=== PATIENT | female | born 1985 | race African-American/Black ===

== ENCOUNTER 2017-01-07 10:42 | Observation (INO) | payer MEDICAID ==
[~2017-01-07 10:42] MED LIST: METH250T21 PO; PREN-96 PO
== END 2017-01-07 12:55 | disposition home or self-care (01) | DRG 566 ==
LOC: LDRP 10:42
PROVIDERS: ADMIT Specialist; ATTEND Specialist
DX: O24.419 Gestational diabetes mellitus in pregnancy, unspecified control (principal); O36.8130 Decreased fetal movements, third trimester, not applicable or unspecified; Z3A.31 31 weeks gestation of pregnancy
CPT/HCPCS: 59025; 76818; 81002; 82962; G0378

== ENCOUNTER 2021-12-21 09:54 | Inpatient (IN) | payer MEDICAID ==
[~2021-12-21] VITALS: Ht 170.2 cm; Wt 136.4 kg
[2021-12-21] MEDS ORDERED: cloNIDine HCL 0.1 MG TAB PO ONE (10:15)
[2021-12-21] MEDS ORDERED: ONDANSETRON ODT 4 MG TAB PO ONE (11:00)
[2021-12-21 11:02] LABS: Basophils # (auto) 0.1 10 ^3/uL (0-0.2); Basophils % (auto) 0.6 % (0.0-2.0); Eosinophils # (auto) 0.1 10 ^3/uL (0-0.8); Eosinophils % (auto) 0.8 % (0.0-7.0); Hematocrit 45.2 % (36.0-46.0); Hemoglobin 14.6 g/dL (12.2-16.2); Lymphocytes # (auto) 1.8 10 ^3/uL (0.4-5.4); Lymphocytes % (auto) 20.2 % (10.0-50.0); Mean Corpuscular Hemoglobin 27.3 pg (28.0-32.0); Mean Corpuscular Hgb Conc. 32.4 g/dL (32.0-36.0); Mean Corpuscular Volume 84.3 fL (80.0-100.0); Monocytes # (auto) 0.5 10 ^3/uL (0-1.3); Monocytes % (auto) 5.9 % (0.0-12.0); Neutrophils # (auto) 6.3 10 ^3/uL (1.6-8.6); Neutrophils % (auto) 72.5 % (37.0-80.0); Nucleated Red Blood Cells % 0.1 %; Red Blood Cells 5.36 10^6/uL (4.0-5.20); Red Cell Distribution Width 14.2 % (11.8-14.3); White Blood Cell 8.8 10^3/uL (4.4-10.8)
[2021-12-21 11:10] LABS: Albumin 3.8 g/dL (3.4-5.0); Calcium 9.1 mg/dL (8.5-10.1); Potassium 3.7 mmol/L (3.5-5.1)
[2021-12-21 11:13] LABS: BUN/Creatinine Ratio 8.3; Bilirubin, Total 0.7 mg/dL (0.2-1.0); Total Protein 8.5 g/dL (6.4-8.2)
[2021-12-21] MEDS ORDERED: LABETALOL HCL 5 MG/ML 4ML SYRINGE IV ONE (14:30)
[2021-12-21] MEDS ORDERED: LABE100T4 PO (16:37)
[2021-12-21] MEDS ORDERED: LISI-716 PO (16:37)
[2021-12-21] MEDS ORDERED: cefTRIAXone SOD 1,000 MG VL IM ONE (16:45)
[2021-12-21] MEDS ORDERED: amLODIPine BESYLATE 5 MG TAB PO ONE (17:15)
[2021-12-22] MEDS ORDERED: DOCUSATE SOD 100 MG CAP PO PRN (00:45)
[2021-12-22] MEDS ORDERED: MORPHINE SULFATE INJ 2 MG/ml SYRG IV PRN (00:45)
[2021-12-22] MEDS ORDERED: SODIUM CHLORIDE 0.9% 1,000 ML IV SCH (00:45)
[2021-12-22] MEDS ORDERED: DEXTROSE (50%) 50ML SYRG IV PRN (00:45)
[2021-12-22] MEDS ORDERED: ONDANSETRON HCL 4 MG/2 ML VIAL IV PRN (00:45)
[2021-12-22] MEDS ORDERED: NITROGLYCERIN 0.4 MG SL TAB SL PRN (00:45)
[2021-12-22] MEDS ORDERED: hydrALAZINE HCL 20 MG/ML VL IV PRN (00:45)
[2021-12-22] MEDS ORDERED: ACETAMINOPHEN 325 MG TAB PO PRN (00:45)
[2021-12-22] MEDS: HYDROcodone-ACET 5/325MG TAB PO PRN (03:19)
[2021-12-22 05:18] LABS: Basophils # (auto) 0.1 10 ^3/uL (0-0.2); Basophils % (auto) 0.6 % (0.0-2.0); Eosinophils # (auto) 0 10 ^3/uL (0-0.8); Hematocrit 44.4 % (36.0-46.0); Hemoglobin 14.9 g/dL (12.2-16.2); Lymphocytes # (auto) 1.3 10 ^3/uL (0.4-5.4); Lymphocytes % (auto) 8.9 % (10.0-50.0); Mean Corpuscular Hemoglobin 27.6 pg (28.0-32.0); Mean Corpuscular Hgb Conc. 33.7 g/dL (32.0-36.0); Mean Corpuscular Volume 81.9 fL (80.0-100.0); Monocytes # (auto) 0.8 10 ^3/uL (0-1.3); Monocytes % (auto) 5.2 % (0.0-12.0); Neutrophils # (auto) 12.5 10 ^3/uL (1.6-8.6); Neutrophils % (auto) 85.3 % (37.0-80.0); Red Blood Cells 5.41 10^6/uL (4.0-5.20); Red Cell Distribution Width 14.2 % (11.8-14.3); White Blood Cell 14.7 10^3/uL (4.4-10.8)
[2021-12-22 05:32] LABS: Albumin 3.8 g/dL (3.4-5.0); Calcium 9.3 mg/dL (8.5-10.1); Potassium 3.9 mmol/L (3.5-5.1)
[2021-12-22 05:38] LABS: BUN/Creatinine Ratio 19.6; Bilirubin, Total 0.6 mg/dL (0.2-1.0)
[2021-12-22] MEDS: ACCU-CHEK COMFORT CURVE STRIP VI SCH ×4 (07:00→22:33)
[2021-12-22] MEDS: InsuLIN REG 1unit/0.01ml Soln (100units/ml) SC SCH ×3 (07:48→17:57)
[2021-12-22] MEDS: ENOXAPARIN SOD 40 MG/0.4 ML SYRINGE SC SCH (08:56)
[2021-12-22] MEDS: amLODIPine BESYLATE 5 MG TAB PO SCH (08:56)
[2021-12-22] MEDS ORDERED: METOPROLOL TARTRATE 50 MG TAB PO SCH (10:00)
[2021-12-22] MEDS ORDERED: cloNIDine HCL 0.1 MG TAB PO PRN (11:45)
[2021-12-22] MEDS ORDERED: TRIAMTERENE/HCTZ 37.5/25 MG CAP/TAB PO ONE (11:45)
[2021-12-22] MEDS: cefTRIAXone 1GM/50ML D5W 50 ML IV SCH (13:28)
[2021-12-22 17:14] VITALS: BP 123/68
[2021-12-22 22:00] VITALS: BP 125/75
[2021-12-22] MEDS ORDERED: InsuLIN REG 1unit/0.01ml Soln (100units/ml) SC SCH (22:00)
[2021-12-22] MEDS: LABETALOL HCL 200 MG TAB PO SCH (22:34)
[2021-12-23 05:00] VITALS: BP 120/65
[2021-12-23] MEDS: ACCU-CHEK COMFORT CURVE STRIP VI SCH ×2 (05:21→12:13)
[2021-12-23] MEDS: InsuLIN REG 1unit/0.01ml Soln (100units/ml) SC SCH ×2 (06:07→12:15)
[2021-12-23 06:31] LABS: Basophils # (auto) 0.1 10 ^3/uL (0-0.2); Basophils % (auto) 0.9 % (0.0-2.0); Eosinophils # (auto) 0.1 10 ^3/uL (0-0.8); Eosinophils % (auto) 0.7 % (0.0-7.0); Hematocrit 41.6 % (36.0-46.0); Hemoglobin 13.5 g/dL (12.2-16.2); Lymphocytes # (auto) 2.4 10 ^3/uL (0.4-5.4); Lymphocytes % (auto) 24.5 % (10.0-50.0); Mean Corpuscular Hgb Conc. 32.5 g/dL (32.0-36.0); Mean Corpuscular Volume 83.1 fL (80.0-100.0); Neutrophils # (auto) 6.3 10 ^3/uL (1.6-8.6); Neutrophils % (auto) 63.9 % (37.0-80.0); Nucleated Red Blood Cells % 0.1 %; Red Blood Cells 5.01 10^6/uL (4.0-5.20); Red Cell Distribution Width 14.5 % (11.8-14.3); White Blood Cell 9.8 10^3/uL (4.4-10.8)
[2021-12-23 06:46] LABS: Albumin 3.4 g/dL (3.4-5.0); Calcium 9.3 mg/dL (8.5-10.1); Potassium 3.8 mmol/L (3.5-5.1)
[2021-12-23 06:50] LABS: BUN/Creatinine Ratio 20.3; Bilirubin, Total 0.6 mg/dL (0.2-1.0); Total Protein 7.2 g/dL (6.4-8.2)
[2021-12-23] MEDS: cefTRIAXone 1GM/50ML D5W 50 ML IV SCH (08:33)
[2021-12-23] MEDS: HYDROcodone-ACET 5/325MG TAB PO PRN (08:49)
[2021-12-23 09:00] VITALS: BP 131/80
[2021-12-23] MEDS: ENOXAPARIN SOD 40 MG/0.4 ML SYRINGE SC SCH (09:26)
[2021-12-23] MEDS: amLODIPine BESYLATE 5 MG TAB PO SCH (09:26)
[2021-12-23] MEDS: LABETALOL HCL 200 MG TAB PO SCH (09:32)
[2021-12-23] MEDS ORDERED: TRIAMTERENE/HCTZ 37.5/25 MG CAP/TAB PO SCH (10:00)
[2021-12-23 12:35] VITALS: BP 133/82
[2021-12-23 13:00] VITALS: BP 126/71
[2021-12-23] MEDS ORDERED: BLOO1KIT60 XX (14:57)
[2021-12-23] MEDS ORDERED: LISI-716 PO (14:57)
[2021-12-23] MEDS ORDERED: AMLO-496 PO (14:57)
[2021-12-23] MEDS ORDERED: LABE200T7 PO (14:57)
[2021-12-23] MEDS ORDERED: LANC-347 XX (14:57)
[2021-12-23] MEDS ORDERED: METF-371 PO (14:57)
[2021-12-23 15:46] VITALS: BP 126/71
== END 2021-12-23 16:36 | disposition home or self-care (01) | DRG 199 ==
LOC: ER 09:54 → EDBD 09:54 → TELE 12-22 00:48 → TELE-EAST 12-22 17:00
PROVIDERS: ADMIT Nurse Practitioner Family; ATTEND Nurse Practitioner Family
DX: I16.0 Hypertensive urgency (principal); E11.65 Type 2 diabetes mellitus with hyperglycemia; E66.01 Morbid (severe) obesity due to excess calories; I10 Essential (primary) hypertension; J45.909 Unspecified asthma, uncomplicated; Z20.822 Contact with and (suspected) exposure to COVID-19; Z91.14 Patient's other noncompliance with medication regimen; Z68.42 Body mass index [BMI] 45.0-49.9, adult
CPT/HCPCS: 36415; 71045; 80053; 80061; 81025; 82962; 83036; 84484; 85025; 87070; 87426; 87804; 87880; 93005; 96361; 96372; 96374; G0378; J0696; J1815; J2405; J3490; Q0162

== ENCOUNTER 2024-12-21 13:05 | Inpatient (IN) | payer MEDICAID ==
[~2024-12-21] VITALS: Ht 172.7 cm; Wt 339.0 kg
[~2024-12-21 13:05] MED LIST changes: +AMLO1TAB23 PO; +BLOO1KIT60 XX; +LABE200T33 PO; +LANC-347 XX; +LISI10TA34 PO; +METF-371 PO; -METH250T21 PO; -PREN-96 PO
--- NOTE | 2024-12-21 14:27 | ED.PDOC ---
History of Present Illness HPI Comments This is a 39-year-old female who comes in with chief complaint of status post fall on Friday at approximately 3:00 a.m. in the morning. The patient states that she was leaning over a bathtub and fell into the bathtub. There was no loss of consciousness but now she is complaining of some head pain. The patient has stood up and then she states that she may have passed out because her family states that she that is somewhat altered. She does not remember the event completely. Upon arrival, the patient is complaining of some nausea. On arrival, the patient's blood pressure was 191/84 with an Accu-Chek of 118. Chief Complaint: Fall Injury Time Seen by MD: 13:29 Primary Care Provider: MERRY Reviewed Notes: Nurses Notes, Medications, Allergies (No allergies to medications) Allergies: Coded Allergies: No Known Drug Allergy (Verified Allergy, Unknown, 11/18/14) Home Meds Active Scripts Ondansetron Odt 4MG Tab (ZOFRAN PO) 4 Mg Tb, 4 MG PO Q8HP PRN for 5 Days, #15 TAB ODT TAB-DISSOLVE IN MOUTH, THEN SWALLOW Prov:SHIRIN CARTER MD 12/21/24 Lancets (Freestyle Lancets) Lancets Mis, BOT XX TIDWM, #120 Prov:TYRON PORTER MD 12/23/21 Blood Glucose Monitoring Suppl (D-Care Glucometer Kit/Glu W/Device) 1 Kit Kit, KIT XX TIDWM, #1 Prov:TYRON PORTER MD 12/23/21 Metformin Hydrochloride (Metformin Hcl) 850 Mg Tab, 1 TAB PO BID, #90 TAB 1 Refill Prov:TYRON PORTER MD 12/23/21 Amlodipine Besylate (Amlodipine Besylate) 10 Mg Tab, 1 TAB PO DAILY, #90 TAB 1 Refill Prov:TYRON PORTER MD 12/23/21 Labetalol Hcl (Labetalol Hcl) 200 Mg Tab, 1 TAB PO BID, #90 TAB 1 Refill Prov:TYRON PORTER MD 12/23/21 Lisinopril (Lisinopril) 10 Mg Tab, 10 MG PO BID for 10 Days, #90 MG Prov:TYRON PORTER MD 12/23/21 Information Source: Patient Mode of Arrival: Ambulatory Severity: Moderate Timing: Hours (Symptoms started at 3:00 a.m. in the morning on Friday) Duration: Since onset Prehospital treatment: None Location: Headaches with some nausea and vomiting Past Medical History PAST MEDICAL HISTORY: Asthma, DM, HTN Surgical History: Surgical History (Other): Right wrist surgery GOVERNMENT PROGRAM MANAGER History: No Pertinent GOVERNMENT PROGRAM MANAGER History Family History Family History: Family hx of DM, Family hx of Cancer Social History Smoker: Non-Smoker Alcohol: Occasionally Drugs: Marijuana Lives In: Home Constitutional: denies: chills, diaphoresis, fatigue, fever, malaise, sweats, weakness, others EENTM: denies: blurred vision, double vision, ear bleeding, ear discharge, ear drainage, ear pain, ear ringing, eye pain, eye redness, hearing loss, mouth pain, mouth swelling, nasal discharge, nose bleeding, nose congestion, nose p ain, photophobia, tearing, throat pain, throat swelling, voice changes, others Respiratory: denies: cough, hemoptysis, orthopnea, SOB at rest, shortness of breath, SOB with excertion, stridor, wheezing, others Cardiovascular: denies: chest pain, dizzy spells, diaphoresis, Dyspnea on exertion, edema, irregular heart beat, left arm pain, lightheadedness, palpitations, PND, syncope, others Gastrointestinal: reports: nausea, vomiting; denies: abdomen distended, abdominal pain, blood streaked bowels, constipated, diarrhea, dysphagia, difficulty swallowing, hematemesis, melena, poor appetite, poor fluid intake, rectal bleeding, rectal pain, others Genitourinary: denies: abnormal vagina bleeding, burning, dyspareunia, dysuria, flank pain, frequency, hematuria, incontinence, pain, , vagina discharge, urgency, others Neurological: reports: headache; denies: dizziness, fainting, left sided numbness, left sided weakness, numbness, paresthesia, pre-existing deficit, ri ght sided numbness, right sided weakness, seizure, speech problems, tingling, tremors, weakness, others Musculoskeletal: denies: back pain, gout, joint pain, joint swelling, muscle pain, muscle stiffness, neck pain, others Integumetry: denies: bruises, change in color, change in hair/nails, dryness, laceration, lesions, lumps, rash, wounds, others Allergic/Immunocompromised: denies: Difficulty Healing, Frequent Infections, Hives, Itching, others Hematologic/Lymphatic: denies: anemia, blood clots, easy bleeding, easy bruising, swollen glands, others Endocrine: denies: excessive hunger, excessive sweating, excessive thirst, excessive urination, flushing, intolerance to cold, intolerance to heat, unexplained weight gain, unexplained weight loss, others Psychiatric: denies: anxiety, bipolar disorder, depression, hopeless, panic disorder, schizophrenia, sleepless, suicidal, others Physical Exam General Appearance: Mild Distress, Obese HEENT: Normal ENT Inspection, Pharynx Normal, TMs Normal Neck: Full Range of Motion, Non-Tender, Normal, Normal Inspection Respiratory: Chest Non-Tender, Lungs Clear, No Accessory Muscle Use, No Respiratory Distress, Normal Breath Sounds Cardiovascular: No Edema, No JVD, No Murmur, No Gallop, Normal Peripheral Pulses, Regular Rate/Rhythm Breast Exam: Deferred Gastrointestinal: No Organomegaly, Non Tender, No Pulsatile Mass, Normal Bowel Sounds, Soft Genitalia: Deferred Pelvic: Deferred Rectal: Deferred Extremities: No calf tenderness, Normal capillary refill, Normal inspection, Normal range of motion, Non-tender, No pedal edema Musculoskeletal : Apperance: Normal Neurologic: Alert, informatica II-XII nml as Tested, No Motor Deficits, Normal Affect, Normal Mood, No Sensory Deficits Cerebellar Function: Normal Reflexes: Normal Skin: Dry, Normal Color, Warm Lymphatic: No Adenopathy Was a procedure done? Was a procedure done?: No EKG EKG : Pulse Rate (adult): 88 Holden: Normal Cardiac Rhythm: NSR Block: None ST: Nonsp Differential Dx Considerations may include: Generalized weakness, electrolyte imbalance, dehydration, blunt head trauma X-Ray, Labs, Meds, VS Vital Signs Date Time Temp Pulse Resp B/P (MAP) Pulse Ox O2 Delivery O2 Flow Rate FiO2 12/21/24 14:42 219/120 12/21/24 14:27 88 12/21/24 13:47 86 16 191/84 (119) 99 12/21/24 13:08 99.2 92 18 168/102 99 99.2 Lab Test 12/21/24 14:17 12/21/24 13:45 Range/Units White Blood Count 9.6 4.4-10.8 10^3/uL Red Blood Count 5.26 H 4.0-5.20 10^6/uL Hemoglobin 14.9 12.2-16.2 g/dL Hematocrit 44.9 36.0-46.0 % Mean Corpuscular Volume 85.4 80.0-100.0 fL Mean Corpuscular Hemoglobin 28.3 28.0-32.0 pg Mean Corpuscular Hemoglobin Concent 33.2 32.0-36.0 g/dL Red Cell Distribution Width 14.6 H 11.8-14.3 % Platelet Count 254 140-450 10^3/uL Mean Platelet Volume 9.9 6.9-10.8 fL Neutrophils (%) (Auto) 84.8 H 37.0-80.0 % Lymphocytes (%) (Auto) 7.0 L 10.0-50.0 % Monocytes (%) (Auto) 6.7 0.0-12.0 % Eosinophils (%) (Auto) 1.1 0.0-7.0 % Basophils (%) (Auto) 0.4 0.0-2.0 % Neutrophils # (Auto) 8.2 1.6-8.6 10 ^3/uL Lymphocytes # (Auto) 0.7 0.4-5.4 10 ^3/uL Monocytes # (Auto) 0.6 0-1.3 10 ^3/uL Eosinophils # (Auto) 0.1 0-0.8 10 ^3/uL Basophils # (Auto) 0 0-0.2 10 ^3/uL Nucleated Red Blood Cells 0.1 % Sodium Level 138 136-145 mmol/L Potassium Level 4.2 3.5-5.1 mmol/L Chloride Level 103 98-107 mmol/L Carbon Dioxide Level 27 20-31 mmol/L Anion Gap 8 5-15 Blood Urea Nitrogen 7 L 9-23 mg/dL Creatinine 0.57 0.550-1.02 mg/dL Glomerular Filtration Rate Calc 119 >90 mL/min BUN/Creatinine Ratio 12.3 10.0-20.0 Serum Glucose 122 H 74-106 mg/dL Calcium Level 9.7 8.7-10.4 mg/dL POC Glucose 118 H 70-106 mg/dl Current Medications Medications (Trade) Dose Ordered Sig/Mike Route Start Time Stop Time Status Last Admin Ondansetron HCl (Zofran Po) 4 mg ONCE ONCE PO 12/21/24 14:30 12/21/24 14:31 DC 12/21/24 14:43 Clonidine HCl (Catapres Tablet) 0.2 mg ONCE ONCE PO 12/21/24 14:30 12/21/24 14:31 DC 12/21/24 14:42 The patient was given Zofran 4 mg p.o. here in the emergency department's The patient is being given clonidine 0.2 mg by mouth for the elevated blood pressure The patient's CAT scan of the head is negative The patient's CBC and chemistry panel are within normal limits We feel that the patient can be safely discharged at this time The patient will return to the emergency department's the condition worsens. Images Reviewed?: Images reviewed and evaluated by me Time of 1ST Reevaluation: 14:27 Reevaluation 1ST: Unchanged Patient Education/Counseling: Diagnosis, Treatment, Prognosis, Need For Follow Up Family Education/Counseling: No Family Present SEPSIS Sepsis Screen Date sepsis recognized/suspect: Dec 21, 2024 Time Sepsis recognized/suspect: 1314 Recent Procedure: No On Antibiotic Therapy: No Respiratory Rate >20: No Heart Rate >90: Yes Temp<36 C (96.8 F) or >38.3 C: No SBP <90 or MAP <65 mmHG: No New Acute Mental Status Change: No Is the patient on CPAP, BIPAP,: No Physician Orders Urinalysis (12/21/24 14:04) Electrocardigram (12/21/24 14:04) Head Without Contrast (12/21/24 14:04) Vital Signs Date Time Temp Pulse Resp B/P (MAP) Pulse Ox O2 Delivery O2 Flow Rate FiO2 12/21/24 14:42 219/120 12/21/24 14:27 88 12/21/24 13:47 86 16 191/84 (119) 99 12/21/24 13:08 99.2 92 18 168/102 99 99.2 Laboratory Tests Test 12/21/24 14:17 White Blood Count 9.6 10^3/uL (4.4-10.8) Medications Medications Dose Ordered Sig/Mike Route Start Time Stop Time Status Last Admin Dose Admin Clonidine HCl 0.2 mg ONCE ONCE PO 12/21/24 14:30 12/21/24 14:31 DC 12/21/24 14:42 Ondansetron HCl 4 mg ONCE ONCE PO 12/21/24 14:30 12/21/24 14:31 DC 12/21/24 14:43 Departure 1 Departure Time of Disposition: 15:22 Impression: Primary Impression: Blunt head trauma Qualified Codes: S09.8XXA - Other specified injuries of head, initial encounter Additional Impression: History of fall Disposition: HOME / SELF CARE / HOMELESS Condition: Fair e-Prescriptions Ondansetron Odt 4MG Tab (ZOFRAN PO) 4 Mg Tb 4 MG PO Q8HP PRN for 5 Days, #15 TAB ODT TAB-DISSOLVE IN MOUTH, THEN SWALLOW Prov: SHIRIN CARTER MD 12/21/24 Discharged With: Self Critical Care Note Critical Care Time?: No Stability Stability form required: No Heart Score Heart Score: Heart Score Response (Comments) Value History N/A 0 EKG N/A 0 Age N/A 0 Risk Factors N/A 0 Troponin N/A 0 Total 0 SHIRIN CARTER MD Dec 21, 2024 14:27
[2024-12-21 14:28] LABS: Hematocrit 44.9 % (36.0-46.0); Hemoglobin 14.9 g/dL (12.2-16.2); Mean Corpuscular Hemoglobin 28.3 pg (28.0-32.0); Mean Corpuscular Volume 85.4 fL (80.0-100.0); Nucleated Red Blood Cells % 0.1 %
[2024-12-21] MEDS: ONDANSETRON ODT 4 MG TAB PO ONE (14:43)
[2024-12-21 14:46] LABS: Chloride 103 mmol/L (98-107); Potassium 4.2 mmol/L (3.5-5.1); Sodium 138 mmol/L (136-145)
[2024-12-21 14:47] LABS: Anion Gap 8 (5-15); Calcium 9.7 mg/dL (8.7-10.4); Carbon Dioxide 27 mmol/L (20-31)
[2024-12-21 14:52] LABS: BUN/Creatinine Ratio 12.3 (10.0-20.0); Blood Urea Nitrogen 7 mg/dL (9-23); Glucose 122 mg/dL (74-106)
--- NOTE | 2024-12-21 15:01 | DVH ---
CLINICAL HISTORY: pain TECHNIQUE: Helical scanning was performed of the head from the skull base to the vertex. Multiplanar reconstructions were performed. This exam was performed according to our departmental dose optimizat ion program. Up-to-date CT equipment and radiation dose reduction techniques are utilized as appropri ate. CTDI 67 DLP 1312 COMPARISON: CT BRAIN on DOS: 12/18/24 FINDINGS: There is no evidence for acute intracranial hemorrhage, acute ischemic changes, mass, mass effect, or extra-axial fluid collection. There is no hydrocephalus or midline shift. There is no effacement of the cerebral sulci and basal subarachnoid cisterns. The dodge-white matter differentiation is well lacey ntained. The imaged paranasal sinuses are clear. IMPRESSION: NO ACUTE INTRACRANIAL ABNORMALITY SEEN.
[2024-12-21] MEDS ORDERED: ZOFR4T PO (15:22)
[2024-12-21] MEDS: hydrALAZINE HCL 20 MG/ML VL IV ONE (18:06)
[2024-12-21 19:20] VITALS: PULSE 88
[2024-12-21] MEDS ORDERED: DEXTROSE (50%) 50ML SYRG IV PRN (19:30)
[2024-12-21] MEDS: hydrALAZINE HCL 20 MG/ML VL IV PRN (20:37)
[2024-12-21 21:19] LABS: Urine Protein, UAD Negative (Negative)
[2024-12-21] MEDS: dilTIAZem 25 MG/5 ML VIAL IV ONE (21:35)
[2024-12-21] MEDS: ACCU-CHEK COMFORT CURVE STRIP VI SCH (22:40)
[2024-12-21] MEDS: InsuLIN REG 1unit/0.01ml Soln (100units/ml) SC SCH (22:45)
[2024-12-21] MEDS: LABETALOL HCL 200 MG TAB PO SCH (22:46)
[2024-12-22] VITALS (40 sets, daily range): BP systolic 118–168; BP diastolic 58–85; PULSE 74–103; RESP 11–30; TEMP 98.8–99.4; O2SAT 88–97
--- NOTE | 2024-12-22 00:27 | DVHHP2 ---
History of Present Illness Reason for Visit: Headache History of Present Illness 39-year-old female presents for evaluation of the headache. Patient reports having a fall four days ago where she leaned forward over her bathtub and fell forward hitting her head. Today she presents with headache and some nausea. On arrival patient was noted to be hypertensive in the 200s. Denies blurred vision, chest pain or shortness for breath. Past Medical History Diabetes mellitus, hypertension and asthma Past Surgical History Family History Cancer and diabetes mellitus Smoke: No ALCOHOL: occassional Drugs: Marijuana Lives: with Family Review of Systems Review of Systems Review of systems are currently negative otherwise addressed in HPI. Allergies: Coded Allergies: No Known Drug Allergy (Verified Allergy, Unknown, 11/18/14) Medications Current Medications Medications Dose Ordered Sig/Mike Route Start Time Stop Time Status Last Admin Dose Admin Hydralazine HCl 10 mg Q6HP PRN IV 12/21/24 19:30 12/21/24 20:47 10 MG Labetalol HCl 200 mg Q12HR PO 12/21/24 22:00 12/21/24 22:46 200 MG Amlodipine Besylate 10 mg DAILY PO 12/22/24 10:00 Lisinopril 10 mg DAILY PO 12/22/24 10:00 Diagnostic Test (Pha) 1 strip ACHS 12/21/24 22:00 12/21/24 22:40 1 STRIP Insulin Human Regular ACHS SC 12/21/24 22:00 12/21/24 22:45 3 UNITS Dextrose 50 ml UD PRN IV 12/21/24 19:30 Ondansetron HCl 4 mg Q4HP PRN IV 12/21/24 19:30 Acetaminophen 650 mg Q6HP PRN PO 12/21/24 19:30 Exam Vital Signs Vital Signs Date Time Temp Pulse Resp B/P (MAP) Pulse Ox O2 Delivery O2 Flow Rate FiO2 12/22/24 00:00 87 20 193/93 (126) 94 12/21/24 20:00 98.7 98.7 12/21/24 19:20 Room Air* 0 21 Exam Gen: 39-year-old female in mild distress, morbidly obese Skin: Warm, dry, normal color and texture, no rash. HEENT: Normocephalic atraumatic, mucous membranes moist and pink. Neck: Cervical and supraclavicular nodes normal without enlargement, trachea is midline, thyroid gland is normal without masses. Pulmonary: Clear to auscultation and percussion bilaterally. Cardiac: Regular rate and rhythm. No murmur Abdomen: Soft, nontender, nondistended, bowel sounds present all 4 quadrants, no guarding, no rigidity, no organomegaly. Extremities: No cyanosis, clubbing, no edema Neuro: Cranial nerves II through XII grossly intact, normal affect and speech, no focal motor deficits. Labs/Xrays ORDERING PHYSICIAN: SHIRIN CARTER MD PROCEDURE(s): HWOCT - HEAD WITHOUT CONTRAST REASON: pain ORDER NUMBER(s): [id number], ACCESSION NUMBER(s): [id number] CLINICAL HISTORY: pain TECHNIQUE: Helical scanning was performed of the head from the skull base to the vertex. Multiplanar reconstructions were performed. This exam was performed according to our departmental dose optimization program. Up-to-date CT equipment and radiation dose reduction techniques are utilized as appropriate. CTDI 67 DLP 1312 COMPARISON: CT BRAIN on DOS: 12/18/24 FINDINGS: There is no evidence for acute intracranial hemorrhage, acute ischemic changes, mass, mass effect, or extra-axial fluid collection. There is no hydrocephalus or midline shift. There is no effacement of the cerebral sulci and basal subarachnoid cisterns. The dodge-white matter differentiation is well maintained. The imaged paranasal sinuses are clear. IMPRESSION: NO ACUTE INTRACRANIAL ABNORMALITY SEEN. Labs Test 12/21/24 20:43 12/21/24 14:17 12/21/24 13:45 Range/Units Urine Color Light-yellow Yellow Urine Clarity Turbid H Clear Urine pH 8.0 5.0-9.0 Urine Specific [place] 1.017 1.001-1.035 Urine Protein Negative Negative Urine Ketones Trace Negative Urine Blood Negative Negative /uL Urine Nitrite Negative Negative Urine Bilirubin Negative Negative Urine Urobilinogen Normal Negative mg/dL Urine Leukocyte Esterase 3+ Negative /uL Urine RBC 10 0 - 4 /hpf Urine Microscopic WBC 88 H 0-5 /HPF Urine Squamous Epithelial Cells Mod <5 /hpf Urine Bacteria Few H None Seen /hpf Urine Mucus Few None Seen Urine Glucose Normal Normal mg/dL White Blood Count 9.6 4.4-10.8 10^3/uL Red Blood Count 5.26 H 4.0-5.20 10^6/uL Hemoglobin 14.9 12.2-16.2 g/dL Hematocrit 44.9 36.0-46.0 % Mean Corpuscular Volume 85.4 80.0-100.0 fL Mean Corpuscular Hemoglobin 28.3 28.0-32.0 pg Mean Corpuscular Hemoglobin Concent 33.2 32.0-36.0 g/dL Red Cell Distribution Width 14.6 H 11.8-14.3 % Platelet Count 254 140-450 10^3/uL Mean Platelet Volume 9.9 6.9-10.8 fL Neutrophils (%) (Auto) 84.8 H 37.0-80.0 % Lymphocytes (%) (Auto) 7.0 L 10.0-50.0 % Monocytes (%) (Auto) 6.7 0.0-12.0 % Eosinophils (%) (Auto) 1.1 0.0-7.0 % Basophils (%) (Auto) 0.4 0.0-2.0 % Neutrophils # (Auto) 8.2 1.6-8.6 10 ^3/uL Lymphocytes # (Auto) 0.7 0.4-5.4 10 ^3/uL Monocytes # (Auto) 0.6 0-1.3 10 ^3/uL Eosinophils # (Auto) 0.1 0-0.8 10 ^3/uL Basophils # (Auto) 0 0-0.2 10 ^3/uL Nucleated Red Blood Cells 0.1 % Sodium Level 138 136-145 mmol/L Potassium Level 4.2 3.5-5.1 mmol/L Chloride Level 103 98-107 mmol/L Carbon Dioxide Level 27 20-31 mmol/L Anion Gap 8 5-15 Blood Urea Nitrogen 7 L 9-23 mg/dL Creatinine 0.57 0.550-1.02 mg/dL Glomerular Filtration Rate Calc 119 >90 mL/min BUN/Creatinine Ratio 12.3 10.0-20.0 Serum Glucose 122 H 74-106 mg/dL Calcium Level 9.7 8.7-10.4 mg/dL Thyroid Stimulating Hormone (TSH) 0.64 0.55-4.78 uIU/mL POC Glucose 118 H 70-106 mg/dl SEPSIS Sepsis Screen Date sepsis recognized/suspect: Dec 21, 2024 Time Sepsis recognized/suspect: 1919 Recent Procedure: No On Antibiotic Therapy: No Respiratory Rate >20: No Heart Rate >90: No Temp<36 C (96.8 F) or >38.3 C: No SBP <90 or MAP <65 mmHG: No New Acute Mental Status Change: No Is the patient on CPAP, BIPAP,: No Physician Orders Heplock Iv (12/21/24 ) Hydralazine Injection (Apresoline Inject (12/21/24 19:30) Consistent Carb(Ccho)Diabetes (12/22/24 Breakfast) Labetalol Hcl Tablet (Normodyne Tablet) (12/21/24 22:00) Amlodipine Tablet (Norvasc Tablet) (12/22/24 10:00) Lisinopril Tablet (Zestril Tablet) (12/22/24 10:00) Glucose Blood (Accu-Chek Comfort Curve T (12/21/24 22:00) Insulin R (Human) (Insulin R) (12/21/24 22:00) Dextrose 50% Syringe (12/21/24 19:30) Admit (12/21/24:25) Ondansetron Hcl (Zofran) (12/21/24 19:30) Echo 2d Mode Cardiac Dop (12/21/24:) Condition: Stable (12/21/24:25) Acetaminophen Tablet (Tylenol Tablet) (12/21/24 19:30) Bedrest With Bathroom Privileg (12/21/24:) Transfer Orders (12/22/24 00:21) Nicardipine 20mg/200ml (12/22/24 00:30) Vital Signs Date Time Temp Pulse Resp B/P (MAP) Pulse Ox O2 Delivery O2 Flow Rate FiO2 12/22/24 00:00 87 20 193/93 (126) 94 12/21/24 23:46 88 198/86 12/21/24 22:46 88 195/90 12/21/24 22:00 91 22 195/94 (127) 96 12/21/24 21:35 100 18 215/100 (138) 95 12/21/24 20:47 205/98 12/21/24 20:37 205/98 12/21/24 20:00 98.7 91 18 205/98 (133) 95 98.7 12/21/24 19:20 88 Room Air* 0 21 12/21/24 19:10 86 10 177/84 (115) 96 12/21/24 18:06 203/100 12/21/24 17:35 Room Air* 0 21 12/21/24 17:00 98.4 83 14 184/86 (118) 92 98.4 12/21/24 16:58 184/86 12/21/24 16:40 184/86 Laboratory Tests Test 12/21/24 14:17 White Blood Count 9.6 10^3/uL (4.4-10.8) Medications Medications Dose Ordered Sig/Mike Route Start Time Stop Time Status Last Admin Dose Admin Amlodipine Besylate 10 mg ONCE ONCE PO 12/21/24 16:45 12/21/24 16:46 DC 12/21/24 16:58 10 MG Clonidine HCl 0.2 mg ONCE ONCE PO 12/21/24 14:30 12/21/24 14:31 DC 12/21/24 14:42 0.2 MG Diagnostic Test (Pha) 1 strip ACHS 12/21/24 22:00 12/21/24 22:40 1 STRIP Diltiazem HCl 10 mg ONCE ONCE IV 12/21/24 21:30 12/21/24 21:31 DC 12/21/24 21:35 10 MG Hydralazine HCl 10 mg Q6HP PRN IV 12/21/24 19:30 12/21/24 20:47 10 MG Hydralazine HCl 15 mg ONCE ONCE IV 12/21/24 17:45 12/21/24 17:46 DC 12/21/24 18:06 15 MG Insulin Human Regular ACHS SC 12/21/24 22:00 12/21/24 22:45 3 UNITS Labetalol HCl 200 mg Q12HR PO 12/21/24 22:00 12/21/24 22:46 200 MG Ondansetron HCl 4 mg ONCE ONCE PO 12/21/24 14:30 12/21/24 14:31 DC 12/21/24 14:43 4 MG Assessment/Plan Assessment/Plan Assessment Hypertensive urgency Blunt head trauma Diabetes mellitus Morbid obesity Plan admit the patient to ICU to the hospitalist Nicardipine drip As needed antihypertensives to wean the drip Resume home medications Continue treatment per orders. Plan discussed with: Patient My Orders Orders - MISAEL AVERY Procedure Category Date Status Time Hydralazine Injection PHA 12/21/24 In Process (Apresoline Inject 19:30 Consistent DIET 12/22/24 Transmitted Carb(Ccho)Diabetes Breakfast Labetalol Hcl Tablet PHA 12/21/24 In Process (Normodyne Tablet) 22:00 Amlodipine Tablet PHA 12/22/24 In Process (Norvasc Tablet) 10:00 Lisinopril Tablet PHA 12/22/24 In Process (Zestril Tablet) 10:00 Glucose Blood PHA 12/21/24 In Process (Accu-Chek Comfort 22:00 Insulin R (Human) PHA 12/21/24 In Process (Insulin R) 22:00 Dextrose 50% Syringe PHA 12/21/24 In Process 19:30 Admit ADMIT 12/21/24 Transmitted 19:25 Ondansetron Hcl PHA 12/21/24 In Process (Zofran) 19:30 Echo 2d Mode Cardiac US 12/21/24 Logged DOP 19:25 Condition: Stable FRANCES 12/21/24 In Process 19:25 Acetaminophen Tablet PHA 12/21/24 In Process (Tylenol Tablet) 19:30 Bedrest With Bathroom FRANCES 12/21/24 In Process Privileg 19:25 Transfer Orders XFER 12/22/24 Transmitted 00:21 Nicardipine 20mg/200ml PHA 12/22/24 Transmitted 00:30 Date of Service: Dec 21, 2024 Billing Provider: MISAEL AVERY Common Visit Codes: [id number] CARE 30-74 MIN MISAEL AVERY Dec 22, 2024 00:27
[2024-12-22 01:40] LABS: Triglycerides 50 mg/dL (< 150)
[2024-12-22 01:42] LABS: HDL Cholesterol 44 mg/dL (40-59)
[2024-12-22 01:43] LABS: Cholesterol 143 mg/dL (< 200)
[2024-12-22] MEDS: ONDANSETRON HCL 4 MG/2 ML VIAL IV PRN (05:27)
[2024-12-22] MEDS: LISINOPRIL 5 MG TAB PO SCH (09:13)
[2024-12-22] MEDS: INSULIN LISPRO (HUMAN) 100 UNITS/ML ML SC SCH (12:33)
[2024-12-22] MEDS: hydroCHLOROthiazide 25 MG TAB PO ONE (12:47)
--- NOTE | 2024-12-22 14:45 | DVHPN2 ---
Assessment/Plan Assessment/Plan progress note 39 F with HTN, 2 c sections admitted for htn crisis. also s/p fall 2/2 dizziness. started on nicardipine. now off. seen today. asymptomatic, started oral bp meds. ok with elevated BP, she was 200s at home for weeks. physical exam aox4 morbidly obese clear breath sounds s1 s2 rrr abdomen obese le edema labs ekg imaging reviewed assessment and plan morbid obesity hypertensive crisis dizziness s/p mech fall resistant HTN BRAD? acute on chronic hypoxic RF start po bp meds add thiazide and labetalol and losartan transfer to telemetry on DC will need sleep study diet cardiac dvt ppx lovenox full code crit care time 35 minutes Plan discussed with: Patient My Orders Orders - ANAMARIA CAMILO MD Procedure Category Date Status Time Lisinopril Tablet PHA 12/23/24 In Process (Zestril Tablet) 10:00 Hydrochlorothiazide PHA 12/23/24 In Process Tablet (Hydrochlorot 10:00 Insulin Lispro PHA 12/22/24 In Process (Human) (Humalog) 11:30 Basic Metabolic Panel LAB 12/23/24 Verified 04:00 Complete Blood Count LAB 12/23/24 Verified 04:00 Transfer Orders XFER 12/22/24 Transmitted 11:28 Date of Service: Dec 22, 2024 Billing Provider: ANAMARIA CAMILO MD Common Visit Codes: [id number] CARE 30-74 MIN ANAMARIA CAMILO MD Dec 22, 2024 14:45
[2024-12-22] MEDS: ACETAMINOPHEN 325 MG TAB PO PRN (22:08)
[2024-12-23] VITALS (8 sets, daily range): BP systolic 110–163; BP diastolic 71–85; PULSE 61–78; RESP 18–21; TEMP 97.7–98.9; O2SAT 94–97
[2024-12-23 07:16] LABS: Hematocrit 40.5 % (36.0-46.0); Hemoglobin 13.9 g/dL (12.2-16.2); Mean Corpuscular Hemoglobin 29.0 pg (28.0-32.0); Mean Corpuscular Volume 84.5 fL (80.0-100.0); Nucleated Red Blood Cells % 0.0 %
[2024-12-23 07:23] LABS: Chloride 100 mmol/L (98-107); Potassium 3.7 mmol/L (3.5-5.1); Sodium 137 mmol/L (136-145)
[2024-12-23 07:24] LABS: Anion Gap 8 (5-15); Carbon Dioxide 29 mmol/L (20-31)
[2024-12-23 07:25] LABS: Calcium 9.5 mg/dL (8.7-10.4)
[2024-12-23 07:29] LABS: BUN/Creatinine Ratio 14.8 (10.0-20.0); Blood Urea Nitrogen 12 mg/dL (9-23)
[2024-12-23 07:39] LABS: Glucose 116 mg/dL (74-106)
[2024-12-23] MEDS: LISINOPRIL 5 MG TAB PO SCH (09:52)
[2024-12-23] MEDS: hydroCHLOROthiazide 25 MG TAB PO SCH (09:53)
--- NOTE | 2024-12-23 16:18 | DVHPN2 ---
Assessment/Plan Assessment/Plan progress note 39 F with HTN, 2 c sections admitted for htn crisis. also s/p fall 2/2 dizziness. started on nicardipine. now off. seen today. 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 uses canabis, no abd pain. physical exam aox4 morbidly obese clear breath sounds s1 s2 rrr abdomen obese le edema labs ekg imaging reviewed assessment and plan morbid obesity hypertensive crisis dizziness s/p mech fall resistant HTN BRAD? acute on chronic hypoxic RF canabis hyperemesis? start po bp meds add thiazide and labetalol and losartan transfer to telemetry on DC will need sleep study zofran prn diet cardiac dvt ppx lovenox full code Plan discussed with: Patient Date of Service: Dec 23, 2024 Billing Provider: ANAMARIA CAMILO MD Common Visit Codes: [id number] INP/OBS CARE(HIGH) ANAMARIA CAMILO MD Dec 23, 2024 16:18
[2024-12-24 05:00] VITALS: BP 154/84; PULSE 71; RESP 18; TEMP 98; O2SAT 93
[2024-12-24 08:04] VITALS: PULSE 62; RESP 17; O2SAT 99
[2024-12-24] MEDS ORDERED: LABE200T10 PO (08:27)
[2024-12-24] MEDS ORDERED: HYDR25TA5 PO (08:27)
[2024-12-24] MEDS ORDERED: LISI20TA56 PO (08:27)
[2024-12-24] MEDS ORDERED: CEPH250C PO (08:27)
[2024-12-24] MEDS ORDERED: ZOFR4T PO (08:29)
[2024-12-24] MEDS ORDERED: METF-490 PO (08:29)
--- NOTE | 2024-12-24 08:29 | DVHDS2 ---
Discharge Summary Date of Admission Dec 21, 2024 at 19:25 Date of Discharge: Dec 24, 2024 Labs/Diagnostic Data: Laboratory Results Test 12/24/24 06:06 12/23/24 06:27 12/22/24 00:41 12/21/24 20:43 POC Glucose 113 mg/dl (70-106) White Blood Count 8.9 10^3/uL (4.4-10.8) Red Blood Count 4.79 10^6/uL (4.0-5.20) Hemoglobin 13.9 g/dL (12.2-16.2) Hematocrit 40.5 % (36.0-46.0) Mean Corpuscular Volume 84.5 fL (80.0-100.0) Mean Corpuscular Hemoglobin 29.0 pg (28.0-32.0) Mean Corpuscular Hemoglobin Concent 34.3 g/dL (32.0-36.0) Red Cell Distribution Width 14.8 % (11.8-14.3) Platelet Count 273 10^3/uL (140-450) Mean Platelet Volume 9.9 fL (6.9-10.8) Neutrophils (%) (Auto) 74.3 % (37.0-80.0) Lymphocytes (%) (Auto) 15.4 % (10.0-50.0) Monocytes (%) (Auto) 9.4 % (0.0-12.0) Eosinophils (%) (Auto) 0.7 % (0.0-7.0) Basophils (%) (Auto) 0.2 % (0.0-2.0) Neutrophils # (Auto) 6.6 10 ^3/uL (1.6-8.6) Lymphocytes # (Auto) 1.4 10 ^3/uL (0.4-5.4) Monocytes # (Auto) 0.8 10 ^3/uL (0-1.3) Eosinophils # (Auto) 0.1 10 ^3/uL (0-0.8) Basophils # (Auto) 0 10 ^3/uL (0-0.2) Nucleated Red Blood Cells 0.0 % Sodium Level 137 mmol/L (136-145) Potassium Level 3.7 mmol/L (3.5-5.1) Chloride Level 100 mmol/L (98-107) Carbon Dioxide Level 29 mmol/L (20-31) Anion Gap 8 (5-15) Blood Urea Nitrogen 12 mg/dL (9-23) Creatinine 0.81 mg/dL (0.550-1.02) Glomerular Filtration Rate Calc 95 mL/min (>90) BUN/Creatinine Ratio 14.8 (10.0-20.0) Serum Glucose 116 mg/dL (74-106) Calcium Level 9.5 mg/dL (8.7-10.4) Troponin I High Sensitivity 4 ng/L (</=34) Triglycerides Level 50 mg/dL (< 150) Cholesterol Level 143 mg/dL (< 200) LDL Cholesterol 97 mg/dL (< 100) HDL Cholesterol 44 mg/dL (40-59) Urine Color Light-yellow (Yellow) Urine Clarity Turbid (Clear) Urine pH 8.0 (5.0-9.0) Urine Specific [place] 1.017 (1.001-1.035) Urine Protein Negative (Negative) Urine Ketones Trace (Negative) Urine Blood Negative /uL (Negative) Urine Nitrite Negative (Negative) Urine Bilirubin Negative (Negative) Urine Urobilinogen Normal mg/dL (Negative) Urine Leukocyte Esterase 3+ /uL (Negative) Urine RBC 10 /hpf (0 - 4) Urine Microscopic WBC 88 /HPF (0-5) Urine Squamous Epithelial Cells Mod /hpf (<5) Urine Bacteria Few /hpf (None Seen) Urine Mucus Few (None Seen) Urine Glucose Normal mg/dL (Normal) Test 12/21/24 14:17 Thyroid Stimulating Hormone (TSH) 0.64 uIU/mL (0.55-4.78) Other Laboratory Tests 12/23/24 06:27 Brief Hx & Hospital Course: 9 F with HTN, 2 c sections admitted for htn crisis. also s/p fall 2/2 dizziness. started on nicardipine. now off. restarted on po meds. still have ocasional nausea, reported starting 2 days [employer] w vomiting. uses canabis, no abd pain. improved with zofran and hot shower. 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 stable to co home. co clinic f/u Condition at Discharge: Good Final Diagnosis/Problems List morbid obesity hypertensive crisis dizziness s/p mech fall resistant HTN BRAD? acute on chronic hypoxic RF canabis hyperemesis? asymptomtic bacteriuria Discharge Disposition: Home Discharge Instruct/Medications Diet: Consistent carbohydrate, Cardiac 2g Na,low cholest Activity: No Restrictions, As Tolerated Follow Up/Referral: [facility] clinic 01/07 PCP referral for sleep study Medications: metformin labetalol hctz lisinopril keflex zofran Scheduled Cephalexin (Keflex Capsule), 1 CAP PO QID Glucose Blood (Glucose Meter Test Strips), 1 WINNIE AC Hctz (Hydrochlorothiazide), 12.5 MG PO DAILY Labetalol HCl (Labetalol HCl), 200 MG PO Q12HR Lisinopril (Lisinopril), 1 TAB PO DAILY Metformin Hydrochloride (Metformin Hcl Er), 1 TAB PO DAILY Scheduled PRN Ondansetron Odt 4MG Tab (Zofran Po), 4 MG PO Q8HP PRN Discontinued Medications Amlodipine Besylate (Amlodipine Besylate), 1 TAB PO DAILY Labetalol Hcl (Labetalol Hcl), 1 TAB PO BID Lisinopril (Lisinopril), 10 MG PO BID Metformin Hydrochloride (Metformin Hcl), 1 TAB PO BID Ondansetron Odt 4MG Tab (Zofran Po), 4 MG PO Q8HP PRN Durable Medical Equipment Blood Glucose Monitoring Suppl (D-Care Glucometer Kit/Glu W/Device), KIT XX TIDWM, (DME) Blood Glucose Monitoring Suppl (Blood Glucose Monitoring W/Device), KIT XX UD PRN, (DME) Isopropyl Alcohol (Alcohol Prep Pad), % XX AC, (DME) Lancets (Freestyle Lancets), BOT XX TIDWM, (DME) Lancets (Freestyle Lancets), UNIT XX AC, (DME) Discharge Statement: "Patient was advised to return to the ER or call 911 if any headaches, dizziness, shortness of breath, chest pain, abdominal pain, bleeding, fevers, or worsening of medical condition. Patient was counseled about treatment plan, medications, possible side effects, patientverbalized understanding. All questions were answered to the best of my ability. This discharge took greater then 30 minutes in planning, reviewing documentation, counseling the patient, and discussing with other team members." ASSESSMENT ASSESSMENT Assessment htn emergency BRAD asymptomatic bacteriuria NIDDM Date of Service: Dec 24, 2024 Billing Provider: ANAMARIA CAMILO MD Common Visit Codes: 24712-QGK/OBS DISCH DAY >30min ANAMARIA CAMILO MD Dec 24, 2024 08:29
[2024-12-24 09:59] VITALS: BP 133/72; PULSE 62; RESP 17; TEMP 98.3; O2SAT 99
[2024-12-24 10:14] VITALS: BP 133/72; PULSE 62; RESP 17; TEMP 98.3; O2SAT 99
[2024-12-24] MEDS ORDERED: BLOO-200 XX (11:22)
[2024-12-24] MEDS ORDERED: LANC-347 XX (11:22)
[2024-12-24] MEDS ORDERED: GLUC1TES63 VI (11:22)
[2024-12-24] MEDS ORDERED: ALCO70PA28 XX (11:22)
--- NOTE | 2024-12-24 12:16 | DVHSR ---
APPROVED REPORT EXAM: Two-dimensional and M-mode echocardiogram with Doppler and color Doppler. Blood Pressure: 132/67 mmHg INDICATION htn RISK FACTORS Obesity: Height: 5'8, Weight: 315 DIMENSIONS LVDd4.7 (3.8-5.7cm)LA (2D)4.4 (1.9-4.0cm)Aortic Root3.0 (2.0-3.7cm) LVDs3.4 (2.5-4.0cm)LA (MM) (1.9-4.0cm)Aortic Cusp Exc1.5 (1.5-2.0cm) EF (%) 60.0 (55-70%)Rt. Atrium4.3 (1.9-4.0cm)Asc. Aorta3.0 cm IVSd1.2 (0.7-1.1cm)RV (D)4.5 (1.8-2.4cm) PWd1.2 (0.7-1.1cm) Mitral Valve MitralMitral Stenosis E wave1.02m/sMV Mean GR.mmHg A wave1.11m/sMV Peak GR.91mmHg E/A ratio0.92D MVAcm2 DECEL [id number] 1/2 [place] Aortic Valve Aortic ValveAortic Stenosis V11.26m/Pardeep Mean GR.10mmHg V22.15m/Pardeep Peak GR.18mmHg LVOT Diameter2.1 (1.8-2.4cm)Doppler AVA2.03cm2 Pulmonic Valve V21.67m/s Tricuspid Valve TR Velocity2.16m/s [id number] Conclusion Technically good study. Sinus rhythm. Concentric LVH with biatrial enlargement. Mild aortic root enlargement. Valves are normal. EF of 60% with normal RV function. Dopplers unremarkable. No pericardial effusion masses or vegetations.
== END 2024-12-24 12:07 | disposition home or self-care (01) | DRG 199 ==
LOC: ER 13:09 → OVERFLOW 19:25 → ICU CENTRL 12-22 02:42 → TELE-CENTR 12-22 16:40 → CENTRAL 12-22 23:48
PROVIDERS: ADMIT Student in an Organized Health Care Education/Training Program; ATTEND Student in an Organized Health Care Education/Training Program
DX: I16.1 Hypertensive emergency (principal); J96.21 Acute and chronic respiratory failure with hypoxia; E66.01 Morbid (severe) obesity due to excess calories; E11.9 Type 2 diabetes mellitus without complications; I1A.0 Resistant hypertension; G47.33 Obstructive sleep apnea (adult) (pediatric); S09.8XXA Other specified injuries of head, initial encounter; J45.909 Unspecified asthma, uncomplicated; R82.71 Bacteriuria; Z79.899 Other long term (current) drug therapy; Z68.42 Body mass index [BMI] 45.0-49.9, adult; Z83.3 Family history of diabetes mellitus; Z79.84 Long term (current) use of oral hypoglycemic drugs; X58.XXXA Exposure to other specified factors, initial encounter; Y93.89 Activity, other specified; Y92.89 Other specified places as the place of occurrence of the external cause; Y99.8 Other external cause status
CPT/HCPCS: 36415; 70450; 80048; 80061; 81001; 82962; 84443; 84484; 85025; 87081; 93306; G0378; J1815; J2405; Q0162